=== PATIENT | female | born 1995 | race Two or more races ===

== ENCOUNTER → 2019-02-20 | Emergency (ER) | payer OTHER ==
[~2019-02-20] VITALS: Ht 154.9 cm; Wt 59.0 kg
[~2019-02-20] MED LIST: WELLBUTRIN XL300 MG PO
== END | disposition left against medical advice (07) ==
LOC: ER 16:09
DX: Z53.20 Procedure and treatment not carried out because of patient's decision for unspecified reasons (principal)